=== PATIENT | female | born 1990 ===

== ENCOUNTER 2017-05-26 20:31 | Inpatient (IN) | payer OTHER ==
[~2017-05-26] VITALS: Ht 152.4 cm; Wt 55.0 kg
--- NOTE | 2017-05-26 20:50 | NUR ---
CALL TO OVIDIO GASPAR FOR PRE BARB RECORDS ON PT.
[2017-05-27] MEDS ORDERED: VITAFOL-OB+DHA1 EACH PO (01:48)
--- NOTE | 2017-05-27 02:21 | PR ---
[facility] [address] [place], [place] [address] Signed Progress Notes IP Datetime Report Generated by CPN: 05/27/2017 02:21 PROGRESS NOTES: [id number] Impression: Slow Progression of Labor Procedures: Artificial ROM Plan: Continue present management; Anticipate Vaginal Delivery VITAL SIGNS: [id number] Vital Signs: Reviewed; Within Normal Limits EXAM: [id number] Dilatation: 5.0 Effacement: 80 Station: -1 Uterine Contractions: every 2-3 minutes MEMBRANES: [id number] Membrane Status: Ruptured Amniotic Fluid Color: Clear ROM Note: AROM without difficulty, with moderate amount clear fluid Comments: Tolerating contractions well Fetus A: [id number] FHR Baseline: 130 Variability: Moderate 6-25bpm Accelerations: 15X15 Decelerations: None Presentation: Vertex Fetus B: [id number] Signing Physician: Vicki Chairez MD CC: *Electronically Signed* 05/27/17 022 VICKI CHAIREZ MD PATIENT NAME: NIKKI SALCEDO PROGRESS NOTE DATE OF : 89 PHYSICIAN: VICKI CHAIREZ MD [facility] #: [id number] REPORT IS CONFIDENTIAL AND NOT TO BE RELEASED WITHOUT AUTHORIZATION
--- NOTE | 2017-05-27 12:35 | PR ---
[facility] [address] [place], [place] [address] Signed PP Progress Notes Datetime Report Generated by CPN: 05/27/2017 12:35 SUBJECTIVE: [id number] Pain: Within normal limits Nausea/Vomiting: Denies Vital Signs: [id number] Vital Signs: Reviewed; Within Normal Limits EXAM: [id number] Abdomen/Uterus: Normal Lochia: Normal Extremities: Normal IMPRESSION/PLAN/PROCEDURES: [id number] Impression: Normal progression Plan: Continue present management Procedures: None Progress Notes: Doing well, without complaint Signing Physician: Vicki Chairez MD CC: *Electronically Signed* 05/27/17 1235 VICKI CHAIREZ MD PATIENT NAME: NIKKI SALCEDO PROGRESS NOTE DATE OF : 89 PHYSICIAN: VICKI CHAIREZ MD RPT #: [id number] REPORT IS CONFIDENTIAL AND NOT TO BE RELEASED WITHOUT AUTHORIZATION
--- NOTE | 2017-05-28 13:13 | PR ---
[facility] [address] [place] [address] Signed PP Progress Notes Datetime Report Generated by CPN: 05/28/2017 13:13 SUBJECTIVE: [id number] Pain: Within normal limits Nausea/Vomiting: Denies Vital Signs: [id number] Vital Signs: Reviewed; Within Normal Limits Notable Details: PP Hgb/Hct = 11.0/32.0 EXAM: [id number] Abdomen/Uterus: Normal Lochia: Normal Extremities: Normal IMPRESSION/PLAN/PROCEDURES: [id number] Impression: Normal progression Plan: Continue present management Procedures: None Progress Notes: Doing well, without complaint. Signing Physician: Vicki Chairez MD CC: *Electronically Signed* 05/28/17 1313 VICKI CHAIREZ MD PATIENT NAME: NIKKI SALCEDO PROGRESS NOTE DATE OF : 89 PHYSICIAN: VICKI CHAIREZ MD RPT #: [id number] REPORT IS CONFIDENTIAL AND NOT TO BE RELEASED WITHOUT AUTHORIZATION
--- NOTE | 2017-05-29 12:06 | PR ---
[facility] [address] [facility] [place] [address] Signed PP Progress Notes Datetime Report Generated by CPN: 05/29/2017 12:06 SUBJECTIVE: [id number] Pain: Within normal limits Nausea/Vomiting: Present Vital Signs: [id number] Vital Signs: Reviewed; Within Normal Limits Notable Details: PP Hgb/Hct = 11.0/32.0 EXAM: [id number] Abdomen/Uterus: Normal Lochia: Normal Extremities: Normal IMPRESSION/PLAN/PROCEDURES: [id number] Impression: Normal progression Plan: Discharge Procedures: None Progress Notes: Doing well, wants to go home. Signing Physician: Vicki Chairez MD CC: *Electronically Signed* 05/29/17 1206 VICKI CHAIREZ MD PATIENT NAME: NIKKI SALCEDO PROGRESS NOTE DATE OF : 89 PHYSICIAN: VICKI CHAIREZ MD RPT #: [id number] REPORT IS CONFIDENTIAL AND NOT TO BE RELEASED WITHOUT AUTHORIZATION
== END 2017-05-29 12:35 | disposition home or self-care (01) | DRG 775 ==
LOC: FBCO 20:31 → FBC 21:00
PROVIDERS: ADMIT General Practice
PROC: 10E0XZZ Delivery of Products of Conception, External Approach (ICD-10-PCS; principal; 2017-05-27)
PROC: 10907ZC Drainage of Amniotic Fluid, Therapeutic from Products of Conception, Via Natural or Artificial Opening (ICD-10-PCS; 2017-05-27)
DX: O60.14X0 Preterm labor third trimester with preterm delivery third trimester, not applicable or unspecified (principal); Z3A.36 36 weeks gestation of pregnancy; Z37.0 Single live birth
CPT/HCPCS: 36415; 85027; J2540; J2590; J7120